=== PATIENT | female | born 1985 | race Caucasian/White ===

== ENCOUNTER 2016-06-30 07:02 | Emergency (ER) | payer OTHER ==
[2016-06-30 07:44] VITALS: BP 101/52
--- NOTE | 2016-06-30 08:33 | EDM.PDOC ---
[id number]: STUFFY NOSE Time Seen by Provider: 06/30/16 08:20 Source: Reports: Patient History Limitations: Reports: No limitations - History of Present Illness INITIAL COMMENTS - FREE TEXT/NARRATIVE: 30-year-old female who caught an upper respiratory infection from her daughter. The last 2 days she's had a stuffy nose, some coughing, scratchy throat and last night was having "a hard time breathing". Her daughter was coughing as well so she came in to be checked. No fevers. No rash. Timing/Duration: Reports: Day(s): (2 days) Severity: mild Associated Symptoms: Reports: shortness of breath. Denies: fever/chills, malaise - Related Data Allergies/ADRs: Allergies Allergy/AdvReac Type Severity Reaction Status Date / Time amoxicillin [From Augmentin] Allergy Nausea Verified 06/30/16 07:53 clavulanic acid Allergy Nausea Verified 06/30/16 07:53 [From Augmentin] orange Allergy Blisters Verified 06/30/16 07:53 red (food color) Allergy Headache Verified 06/30/16 07:53 Home Meds: Home Meds NK [No Known Home Meds] 06/30/16 [History] Past Medical History ST[employer]INE [employer] History: Reports: Psychiatric History: Reports: Anxiety, PTSD - Infectious Disease History Infectious Disease History: Reports: Chicken pox, Pertussis (whooping cough) - Past Surgical History Musculoskeletal Surgical History: Reports: Shoulder replacement Social & Family History - Tobacco Use Smoking Status *Q: Current Some Day Smoker Years of Tobacco use: 12 Packs/Tins Daily: 0.3 Second Hand Smoke Exposure: No - Caffeine Use Caffeine Use: Reports: None - Recreational Drug Use Recreational Drug Use: Yes Recreational Drug Type: Reports: Marijuana/Hashish Recreational Drug Use Frequency: Daily ED ROS GENERAL - Review of Systems Review Of Systems: See Below Constitutional: Denies: fever, chills HEENT: Reports: Rhinitis. Denies: Throat pain (Some scratchiness) Respiratory: Reports: Shortness of Breath, Cough. Denies: Sputum Cardiovascular: Denies: Chest pain GI/Abdominal: Denies: Abdominal pain, Nausea, Vomiting Skin: Reports: no symptoms Neurological: Denies: Headache ED EXAM, GENERAL - Physical Exam Exam: See Below Exam Limited By: No limitations General Appearance: alert, no apparent distress Eye Exam: bilateral eye: normal inspection Ears: normal TMs Nose: clear rhinorrhea Throat/Mouth: Normal inspection Respiratory/Chest: no respiratory distress, lungs clear Course - Vital Signs Last Recorded V/S: Last Vital Signs Temp 96.8 F 06/30/16 07:42 Pulse 90 06/30/16 07:42 Resp 15 06/30/16 07:42 BP 101/52 L 06/30/16 07:42 Pulse Ox 96 06/30/16 07:42 - Re-Assessments/Exams Free Text/Narrative Re-Assessment/Exam: 06/30/16 08:31 Patient has an upper respiratory infection very likely viral. 06/30/16 08:32 Her child has an ear infection bilaterally and will be placed on amoxicillin but no treatment is necessary for this patient. [id number] cold medications may help. Departure - Departure Time of Disposition: 08:57 Disposition: Home, Self-Care 01 Condition: good Clinical Impression: Viral URI with cough Instructions: Cough, Adult, Wlbl-[id number], Upper Respiratory Infection, Adult, [id number] Referrals: PCP,None [Primary Care Provider] - Forms: ED Department Discharge Care Plan Goals: [id number] cold medications may help, rest and fluids are important. Return if worsening such as difficulty breathing.
== END 2016-06-30 08:53 | disposition home or self-care (01) ==
LOC: JP.ED 07:02
DX: J06.9 Acute upper respiratory infection, unspecified (principal); B97.89 Other viral agents as the cause of diseases classified elsewhere; F17.210 Nicotine dependence, cigarettes, uncomplicated; F43.10 Post-traumatic stress disorder, unspecified; Z88.1 Allergy status to other antibiotic agents; Z91.018 Allergy to other foods
CPT/HCPCS: 99283